=== PATIENT | male | born 1980 | race Caucasian/White ===

== ENCOUNTER 2016-12-07 04:52 | Inpatient (IN) | payer OTHER ==
[~2016-12-07] VITALS: Ht 167.6 cm; Wt 175.5 kg
--- NOTE | ~2016-12-07 | HP ---
Unit #: [id number] #: [id number] Patient: PERFECTO CHILD [id number] [address] [address] [id number] I MR#: [id number] NAME: PERFECTO CHILD ROOM: CICCU3 Age: 36 Sex: M Admission Date: 12/07/2016 : 1980 Attending Physician: Desmond Dumont M.D. Primary Care Physician: No Primary Care Physician HISTORY AND PHYSICAL HISTORY OF PRESENT ILLNESS The patient is a 36-year-old man with a history significant for nonischemic cardiomyopathy, who presents to the hospital with symptoms of acute severe shortness of breath, sudden onset, associated with symptoms of cough. PAST MEDICAL HISTORY Past medical history for community-acquired pneumonia approximately three years ago, nonischemic cardiomyopathy with ejection fraction of 10% to 15%, hypertension, hyperlipidemia, morbid obesity, asthma. ALLERGIES No known drug allergies. HOME MEDICATIONS 1. Furosemide 40 mg p.o. b.i.d. 2. K-Dur 20 mEq p.o. daily. 3. Isosorbide mononitrate 10 mg p.o. b.i.d. 4. Aldactone 12.5 mg p.o. daily. 5. Lisinopril 20 mg p.o. daily. 6. Hydralazine 50 mg p.o. t.i.d. 7. Coreg 12.5 mg p.o. b.i.d. 8. Zyloprim 100 mg p.o. daily. 9. Aspirin 81 mg p.o. daily. 10. Indomethacin 50 mg p.o. t.i.d. SOCIAL HISTORY Currently a nonsmoker, does not drink alcohol. FAMILY HISTORY Positive for diabetes mellitus and congestive heart failure. REVIEW OF SYSTEMS History notable for shortness of breath, cough, chills and as per HPI. The rest of 12-point review of systems history negative. PHYSICAL EXAMINATION VITAL SIGNS: On examination initially temperature of 99.7, heart rate of 130 and respiratory rate of 50. Patient started on supplemental oxygen and subsequently his heart rate improved to 93. His respiratory rate improved to 29. Oxygen saturation 96% on 10 L Oxymizer. GENERAL: Morbidly obese, tachypneic. HEENT: Normocephalic and atraumatic. Oropharynx clear. Unit #: [id number] #: [id number] Patient: PERFECTO CHILD NECK: Supple. Trachea midline. CHEST: Bilateral air entry. Diminished breath sounds over right side. Scattered rhonchi. CARDIAC: Tachycardic, with regular rhythm. ABDOMEN: Soft, nontender and nondistended. EXTREMITIES: No cyanosis. Mild dependent edema. DIAGNOSTIC STUDIES IMAGING: Chest x-ray dense airspace infiltrate. ASSESSMENT AND PLAN 1. Acute respiratory failure with hypoxia requiring Oxymizer at 10 L per minute to maintain O2 sats above 90% secondary to pneumonia. Plan is to order and continue supplemental oxygen, order nebulized bronchodilators, order empiric IV antibiotics, order pulmonary consultation. 2. Acute exacerbation of congestive heart failure, systolic failure, ejection fraction 10% to 15%. Plan is to order IV diuresis, continue CARMINA inhibitor, order cardiology consultation. Dictated by Gilberto Olea TD: 12/07/2016 19:20 JOB #: [id number] HISTORY AND PHYSICAL Page 1 of 1 X X HISTORY AND PHYSICAL
--- NOTE | ~2016-12-07 | EKG ---
PATIENT: PERFECTO CHILD UNIT #: [id number] Ventricular Rate: 114 BPM Atrial Rate: 114 BPM P-R Interval: 140 ms QRS Duration: 170 ms Q-T Interval: 350 ms QTC Calculation(Bezet): 482 ms P [place]: 31 degrees Calculated R [place]: -89 degrees Calculated T [place]: 77 degrees Diagnosis Line: Sinus tachycardia Diagnosis Line: Possible Left atrial enlargement Diagnosis Line: Left axis deviation Diagnosis Line: Left bundle branch block Diagnosis Line: Abnormal ECG Diagnosis Line: No previous ECGs available Diagnosis Line: Confirmed by DARY MARIA MD ([id number]) on 12/07/2016 Diagnosis Line: 5:17:33 PM INTERPRETING MD: CROW BROWN
--- NOTE | ~2016-12-07 | BMI ---
[facility] Nutrition Therapy DATE: 12/07/16 Patient: PERFECTO CHILD Physician: DEB Address: [address] [facility] Room/Bed: [address], Zip: [place] [address] Admit Date: 12/07/16 Date of : [birth year] Height: 5 6 Weight: 416 189.03 HIGH BMI NOTE: DX: 36 y/o male, diagnosis unknown at this time (No H&P available) ANTHROPOMETRICS: Ht: 66", Wt: 416 lbs, BMI: 67 (stage III obese) DIET: NPO INTERVENTION: Restricted diet, meds/fluids per MD RECOMMENDATIONS: Once appropriate advance oral diet as tolerated to healthy heart to promote a gradual weight loss towards a healthy BMI range. Add consistent carb restriction if the patient has a hx of DM. Respectfully, Viviane Dang RD, LD Food and Nutritional Services [facility] cc: client file
--- NOTE | ~2016-12-07 | EKG ---
PATIENT: PERFECTO CHILD UNIT #: [id number] Ventricular Rate: 103 BPM Atrial Rate: 103 BPM P-R Interval: 162 ms QRS Duration: 172 ms Q-T Interval: 400 ms QTC Calculation(Bezet): 524 ms P [place]: 49 degrees Calculated R [place]: -129 degrees Calculated T [place]: 41 degrees Diagnosis Line: Sinus tachycardia Diagnosis Line: Possible Left atrial enlargement Diagnosis Line: Right superior axis deviation Diagnosis Line: Non-specific intra-ventricular conduction block Diagnosis Line: Abnormal ECG Diagnosis Line: When compared with ECG of 07-DEC-2016 09:34, Diagnosis Line: No significant change was found Diagnosis Line: Confirmed by WAYNE FARIAS MD ([id number]) on Diagnosis Line: 12/10/2016 4:48:02 PM INTERPRETING MD: DENZEL
--- NOTE | ~2016-12-07 | EKG ---
PATIENT: PERFECTO CHILD UNIT #: [id number] Ventricular Rate: 72 BPM Atrial Rate: 72 BPM P-R Interval: 174 ms QRS Duration: 182 ms Q-T Interval: 464 ms QTC Calculation(Bezet): 508 ms P [place]: 14 degrees Calculated T [place]: 71 degrees Diagnosis Line: Normal sinus rhythm Diagnosis Line: Non-specific intra-ventricular conduction delay Diagnosis Line: LBBB type Diagnosis Line: Abnormal ECG Diagnosis Line: When compared with ECG of 08-DEC-2016 06:23, Diagnosis Line: QRS axis Shifted right Diagnosis Line: Confirmed by WAYNE FARIAS MD ([id number]) on Diagnosis Line: 12/14/2016 4:34:34 PM INTERPRETING MD: DENZEL
--- NOTE | ~2016-12-07 | EKG ---
PATIENT: PERFECTO CHILD UNIT #: [id number] Ventricular Rate: 127 BPM Atrial Rate: 127 BPM P-R Interval: 136 ms QRS Duration: 160 ms Q-T Interval: 426 ms QTC Calculation(Bezet): 619 ms P [place]: -27 degrees Calculated R [place]: -98 degrees Calculated T [place]: 60 degrees Diagnosis Line: Sinus tachycardia Diagnosis Line: Right superior axis deviation Diagnosis Line: Non-specific intra-ventricular conduction block Diagnosis Line: Abnormal ECG Diagnosis Line: When compared with ECG of 07-DEC-2016 04:58, Diagnosis Line: (unconfirmed) Diagnosis Line: qrs axis has shifted right and QRS widening is new Diagnosis Line: Confirmed by DARY MARIA MD ([id number]) on 12/07/2016 Diagnosis Line: 5:14:55 PM INTERPRETING MD: CROW BROWN
--- NOTE | ~2016-12-07 | CR72 ---
[facility] A Service of [facility] RADIOLOGY TEXT RESULTS PATIENT: PERFECTO CHILD LOCATION: [address] : [birth year] UNIT #: [id number] AGE: [address]: LIBERTY BURRIS V SEX: M ORDER DR: [id number] [facility] [address] [facility] [place], [place] [address] [id number] I MR#: [id number] #: [id number] NAME: PERFECTO CHILD : 1980 SEX: M STUDY DATE/TIME: 12/09/2016 4:14 UNIT: [facility] ROOM: [facility] STUDY DESCRIPTION: CR Chest Single View Portable Attending Physician: Liberty Burris M.D. Ordering Physician: Sushant Panda M.D. Primary Care Physician: Primary Care Physician No MEDICAL IMAGING REPORT This report is preliminary unless electronic signature is present EXAM Portable chest HISTORY Shortness of air and leg edema and cough for 2 days. FINDINGS Compared to 12/07/2016 there has been interval clearing of the extensive infiltrate in the right lung. Stable cardiac enlargement. Underpenetration of the left base with questionable consolidation or atelectasis in the retrocardiac left lower lobe. Evaluation is also limited by relatively low lung volumes. No additional focal infiltrates are identified. Dictated by... Soham Jc M.D. THIS IS AN ELECTRONICALLY VERIFIED REPORT Soham Jc M.D. at 12/10/2016 4:51 AM CJ/liv TD: 12/10/2016 00:23 JOB #: [id number] MEDICAL IMAGING REPORT Page 1 of 1 COPY
--- NOTE | ~2016-12-07 | CR72 ---
[facility] A Service of [facility] / [facility] RADIOLOGY TEXT RESULTS PATIENT: PERFECTO CHILD LOCATION: [facility] 547-01 : [birth year] UNIT #: [id number] AGE: [address]: Vasquez Buckley MD SEX: M ORDER DR: [id number] [facility] [address] [place], [place] [address] [id number] I MR#: [id number] Acc #: [id number] NAME: PERFECTO CHILD : 1980 SEX: M STUDY DATE/TIME: 12/07/2016 5:15 UNIT: [facility] ROOM: [facility] STUDY DESCRIPTION: CR Chest Single View Portable Attending Physician: Desmond Dumont M.D. Ordering Physician: Francisco Javier Curtis D.O. Primary Care Physician: No Primary Care Physician MEDICAL IMAGING REPORT This report is preliminary unless electronic signature is present EXAM Chest x-ray, 12/07/2016. HISTORY 36-year-old male in the ED complaining of a 2-week history of shortness of air, cough and wheezing, worsening today. TECHNIQUE AP portable chest x-ray. FINDINGS The exam shows dense airspace infiltrate throughout the majority of the right lung. Left lung is mostly clear, with the exception of minimal infiltrate or atelectasis in the left base. Marked cardiomegaly is stable. Pulmonary vascularity is within normal limits. No visible pleural effusion. Lung volumes are low, largely related to patient body habitus. IMPRESSION 1. Dense airspace infiltrate throughout the right lung. Infectious pneumonitis is suspected, correlate clinically. 2. Stable marked cardiomegaly. Dictated by... Sushant Johnson M.D. THIS IS AN ELECTRONICALLY VERIFIED REPORT Sushant Johnson M.D. at 12/10/2016 11:07 PM RGW/tmw TD: 12/07/2016 14:15 [facility] A Service of [facility] RADIOLOGY TEXT RESULTS PATIENT: PERFECTO CHILD LOCATION: [place] [address]-01 : [birth year] UNIT #: [id number] AGE: [address]: Vasquez Buckley MD SEX: M ORDER DR: JOB #: [id number] MEDICAL IMAGING REPORT Page 1 of 1 COPY
--- NOTE | ~2016-12-07 | CR63 ---
[facility] A Service of [facility] & [facility] RADIOLOGY TEXT RESULTS PATIENT: PERFECTO CHILD LOCATION: [place] [address]- : [birth year] UNIT #: [id number] AGE: [address]: Vasquez Buckley MD SEX: M ORDER DR: [id number] [facility] [address] [place], [place] [address] [id number] I MR#: [id number] Acc #: [id number] NAME: PERFECTO CHILD : 1980 SEX: M STUDY DATE/TIME: 12/10/2016 7:26 UNIT: [facility] ROOM: [facility] STUDY DESCRIPTION: CR Chest 2 View Attending Physician: Vasquez Buckley M.D. Ordering Physician: Desmond Dumont M.D. Primary Care Physician: No Primary Care Physician MEDICAL IMAGING REPORT This report is preliminary unless electronic signature is present EXAM Chest PA and lateral 12/10/2016. HISTORY Shortness of breath and cough beginning 12/07/2016, benign essential hypertension, congestive heart failure, asthma, diabetes. Smoking history. FINDINGS The heart is enlarged but stable compared with 12/09/2016. There is poor inspiratory result with bibasilar atelectasis. The lungs are otherwise clear. There are no pleural effusions. IMPRESSION Stable cardiomegaly compared with 12/09/2016. No active pulmonary disease. Dictated by... Edmundo Sorensen M.D. THIS IS AN ELECTRONICALLY VERIFIED REPORT Edmundo Sorensen M.D. at 12/11/2016 7:16 AM KRT/gz TD: 12/10/2016 13:30 JOB #: [id number] MEDICAL IMAGING REPORT Page 1 of 1 COPY
--- NOTE | ~2016-12-07 | EKG ---
PATIENT: PERFECTO CHILD UNIT #: [id number] Ventricular Rate: 101 BPM Atrial Rate: 101 BPM P-R Interval: 172 ms QRS Duration: 172 ms Q-T Interval: 422 ms QTC Calculation(Bezet): 547 ms P [place]: 43 degrees Calculated R [place]: -60 degrees Calculated T [place]: 82 degrees Diagnosis Line: Sinus tachycardia Diagnosis Line: Possible Left atrial enlargement Diagnosis Line: Left axis deviation Diagnosis Line: Left bundle branch block Diagnosis Line: Abnormal ECG Diagnosis Line: When compared with ECG of 07-DEC-2016 06:31, Diagnosis Line: (unconfirmed) Diagnosis Line: No significant change was found Diagnosis Line: Confirmed by DARY MARIA MD ([id number]) on 12/07/2016 Diagnosis Line: 5:26:12 PM INTERPRETING MD: CROW BROWN
--- NOTE | ~2016-12-07 | US84 ---
[id number] [facility] [address] [facility] [place], [place] [address] [id number] I MR#: [id number] Acc #: [id number] NAME: PERFECTO MARSH : 1980 SEX: M STUDY DATE/TIME: 12/08/2016 9:15 UNIT: C5B ROOM: 547 STUDY DESCRIPTION: US LE Veins Complete Mathew Stdy Attending Physician: Vasquez Buckley M.D. Ordering Physician: Juanpablo Hernández M.D. Primary Care Physician: Primary Care Physician No MEDICAL IMAGING REPORT This report is preliminary unless electronic signature is present EXAM Bilateral lower extremity duplex venous ultrasound. INDICATIONS Bilateral lower extremity swelling for 2 weeks and shortness of breath. TECHNIQUE Ling-scale, color Doppler, and spectral Doppler waveform imaging of the deep venous structures of both lower extremities was performed. COMPARISON No comparisons are available. FINDINGS All of the evaluated deep venous structures are patent. There is no evidence for DVT. IMPRESSION There is no evidence for DVT. Dictated by... Jose Marsh M.D. THIS IS AN ELECTRONICALLY VERIFIED REPORT Jose Marsh M.D. at 12/11/2016 7:02 AM RADHA/betsey TD: 12/09/2016 11:36 JOB #: [id number] MEDICAL IMAGING REPORT Page 1 of 1 COPY
--- NOTE | ~2016-12-07 | DS ---
Unit #: [id number] #: [id number] Patient: PERFECTO CHILD [id number] [address] [address] [id number] I MR#: [id number] NAME: PERFECTO CHILD ROOM: 547 Age: 36 Sex: M Admission Date: 12/07/2016 : 1980 Discharge Date: 12/13/2016 Attending Physician: Vasquez Buckley M.D. Primary Care Physician: No Primary Care Physician DISCHARGE SUMMARY DISCHARGE DIAGNOSES 1. Acute on chronic systolic heart failure. 2. Acute hypoxic respiratory failure. 3. Hypertension. 4. Morbid obesity. 5. Probable obstructive sleep apnea. HOSPITAL COURSE The patient is a 36-year-old male with morbid obesity and systolic heart failure, ejection fraction of 10% to 15%, who presented to [facility] secondary to worsening shortness of breath. Patient was initially placed on 100% nonrebreather and admitted to the ICU. He was started on an 1800 mL daily fluid restriction. He was seen by cardiology and started on dobutamine and IV Lasix as well. Given the patient's body habitus, he was started on BiPAP at night for probable sleep apnea. Patient's medications were altered to ensure (1) medical management. The patient's diuresis has gone well. At this time, he is in net 6 liters down. His breathing is much better and he is no longer requiring oxygen. Patient was set up for a LifeVest, which was delivered. Unfortunately, secondary to the patient's size, there was no available vest that would fit. As a result, the patient was taken for heart cath, which revealed normal coronary arteries. At this time, the patient's respiratory status is near baseline. He is off oxygen. Secondary to this, he is being discharged home after optimization of his medications. DISCHARGE MEDICATIONS 1. Coreg 37.5 mg p.o. b.i.d. 2. Lasix 60 mg b.i.d. 3. Zestril 10 mg b.i.d. 4. Allopurinol 100 mg daily. 5. Aspirin 81 mg daily. 6. Spironolactone 25 mg daily. 7. Nitroglycerin 0.4 mg sublingual q.5 minutes x3 doses max p.r.n. chest pain. FOLLOWUP Unit #: [id number] #: [id number] Patient: PERFECTO CHILD Patient is to follow up with Dr. Boyle in two weeks. He should follow up with Dr. Edin Hernández for sleep study. DISCHARGE DIET Patient should stick to a strict heart healthy, low sodium diet with 1800 mL daily fluid restriction. Dictated by... Vasquez Buckley M.D. ISIAH/kyle TD: 12/17/2016 09:04 JOB #: [id number] DISCHARGE SUMMARY Page 1 of 1 X Vasquez Buckley MD X DISCHARGE SUMMARY
--- NOTE | ~2016-12-07 | CO ---
Unit #: [id number] #: [id number] Patient: PERFECTO CHILD [id number] [address] [address] [id number] I MR#: [id number] NAME: PERFECTO CHILD ROOM: 547 Age: 36 Sex: M Admission Date: 12/07/2016 : 1980 Attending Physician: Vasquez Buckley M.D. Primary Care Physician: Primary Care Physician No Consultation Date: 12/12/2016 CONSULTATION REPORT REASON FOR CONSULTATION Depression and anxiety. HISTORY OF PRESENT ILLNESS Mr. Ramirez is a 36-year-old male, seen in room 547 bed 1 on 12/12/2016 at [facility]. The patient reported feeling anxious and nervous about upcoming cath tomorrow. The patient denied any thoughts of harming self or others. Denied any psychotic symptom except for anxiety. The patient was admitted with cardiac problem, history of nonischemic cardiomyopathy, symptoms of acute severe shortness of breath leading to severe anxiety. The patient's vital signs; temperature 99.7, blood pressure 130/50, oxygen saturation 96%, respiration rate is 29. PAST PSYCHIATRIC HISTORY Unremarkable for any history of any psychiatric illness, depression, anxiety, or any substance abuse. MEDICAL HISTORY History of community acquired pneumonia, nonischemic cardiomyopathy with ejection fraction of 10% to 15%, hypertension, hyperlipidemia, morbid obesity, asthma. ALLERGIES No known drug allergies. MEDICATIONS Furosemide, K-Dur, isosorbide mononitrate, Aldactone, lisinopril, hydralazine, Coreg, Zyloprim, aspirin, indomethacin. FAMILY HISTORY AND SOCIAL HISTORY The patient reports that he has a good support system. Denied any use of any drugs or alcohol. No history of abuse. MENTAL STATUS EXAMINATION Vital signs; please see above. General appearance; the patient dressed casually, moderately obese. Attention span and concentration, fair. Speech; regular rate and coherent. Oriented in time, place, and person. Mood and affect; sad, dysphoric, anxious. Thought process, coherent. Thought content, the patient denied any thoughts of harming self or others or any hallucination. Recent and remote memory, fair. Language, intact. Fund of knowledge, fair. Insight and judgment, fair to slightly impaired. DIAGNOSES Psychiatric: Anxiety disorder, not otherwise specified, F40.01; mood Unit #: [id number] #: [id number] Patient: PERFECTO CHILD disorder, not otherwise specified, F32.9. Secondary diagnosis: Deferred. Medical diagnosis: Please refer to H and P. Stressors: Psychosocial stressors. ASSESSMENT AND PLAN 1. Supportive psychotherapy and psychoeducation provided to the patient. 2. Educated about benefits and side effects of medication and course and prognosis of illness. 3. Advised no medication at this time. If needed, consider medication at a later date. We will continue to follow. Please feel free to call if any question telephone #[phone]. Dictated by... Gilberto Ayala/aileen TD: 12/13/2016 19:04 JOB #: [id number] CONSULTATION REPORT Page 1 of 1 X Win Arreguin MD X CONSULTATION REPORT
--- NOTE | ~2016-12-07 | CO ---
Unit #: [id number] #: [id number] Patient: PERFECTO CHILD [id number] [facility] [address] [facility]. [place], [place] [address] [id number] I MR#: [id number] NAME: PERFECTO CHILD ROOM: CICCU3 Age: 36 Sex: M Admission Date: 12/07/2016 : 1980 Attending Physician: Desmond Dumont M.D. Primary Care Physician: No Primary Care Physician Consultation Date: 12/07/2016 CONSULTATION REPORT REASON FOR CONSULT Congestive heart failure. HISTORY OF PRESENT ILLNESS This is a 36-year-old white male previously known to our group with a past medical history of chronic systolic heart failure, hypertension, hyperlipidemia, diabetes mellitus, and morbid obesity. The patient was seen at [facility] April 2013 for congestive heart failure. A 2D echocardiogram was completed and revealed an ejection fraction of 10% to 15% with severe global hypokinesis. He was recommended to follow up as an outpatient but did not come to the office. He has not followed with cardiology since that time but does have an upcoming appointment. He has been receiving his medications from his primary care provider; however, he states there are times that he runs out of his medications or does not take them as instructed. He does not follow fluid restriction. He reportedly underwent a cardiac catheterization that revealed no significant stenosis. Details of the procedure are unknown. He does not have an AICD. He presented to the emergency department with complaints of shortness of breath. He states that he has been short of breath for the last couple of weeks but it recently became worse. It got to the point where the shortness of breath was with rest and at night. He could not lay flat. He has had a possible low-grade fever. He admits to a mildly productive cough. There are no reports of dizziness or syncope. He admits to some palpitations. There were no reports of chest pain, but he does report PND, orthopnea, and lower extremity edema. In the emergency department, his temperature was 99.7. Pulse 130, respirations 50, blood pressure 116/95, and O2 saturation 96% on 100% nonrebreather. Initial O2 saturation was 80% on room air. Chest x-ray revealed severe cardiomegaly with vascular congestion. There is also concern for underlying pneumonia. The patient was given IV antibiotics and initially placed on BiPAP. He was then switched to 100% nonrebreather. He was admitted to the intensive care unit and cardiology was consulted. PAST MEDICAL HISTORY 1. Previous admission to [facility] April 2013 for systolic congestive heart failure, pneumonia, and asthma. 2. A 2D echocardiogram, April 28, 2013, was a technically difficult study. Left ventricular ejection fraction 10% to 15%. Severe global hypokinesis. LV is severely dilated. RV moderately dilated. LA mildly dilated. No pericardial effusion. Limited view of valves. Unit #: [id number] #: [id number] Patient: PERFECTO CHILD 3. Chronic systolic congestive heart failure. 4. Reported nonischemic cardiomyopathy. 5. Previous cardiac catheterization reportedly, per patient, with no significant blockage. Details unavailable. 6. Morbid obesity with a BMI of 69. 7. Hypertension. 8. Hyperlipidemia. 9. Diabetes mellitus type 2. 10. Asthma. 11. Probable obstructive sleep apnea. 12. History of nonsustained ventricular tachycardia. PAST SURGICAL HISTORY Reported cardiac catheterization, details unavailable. HOME MEDICATIONS 1. Furosemide 40 mg p.o. b.i.d. 2. Potassium chloride 20 mEq p.o. daily. 3. Isosorbide mononitrate 10 mg p.o. b.i.d. 4. Spironolactone 12.5 mg p.o. daily. 5. Lisinopril 20 mg p.o. daily. 6. Hydralazine 50 mg p.o. t.i.d. 7. Carvedilol 12.5 mg p.o. b.i.d. 8. Allopurinol 100 mg p.o. daily. 9. Aspirin 81 mg p.o. daily. 10. Indomethacin 50 mg p.o. three times daily. ALLERGIES No known drug allergies. 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 He is fairly sedentary and says that he cannot walk a city block without getting fatigued and short of breath. He is a reformed smoker and quit over five years ago. There are no reports of alcohol or illicit drug use. FAMILY HISTORY Significant for hypertension. REVIEW OF SYSTEMS A 10-point review of systems negative except for details noted above in HPI. PHYSICAL EXAMINATION VITAL SIGNS: Temperature 99.7, pulse 98, blood pressure 121/81. CONSTITUTIONAL: This is a 36-year-old morbidly obese white male, mildly distressed with tachypnea. SKIN: Warm and dry, pale. NECK: Supple. No jugular vein distention. No hepatojugular reflux. Normal carotid upstrokes. No carotid bruits auscultated. HEART: S1, S2. Regular rate and rhythm but tachycardic. No murmurs, rubs, or gallops. Distant heart sounds. LUNGS: Bilateral breath sounds have decreased air entry in the bases. Respirations slightly tachypneic and labored. ABDOMEN: Soft, nontender, nondistended. Positive bowel sounds auscultated x4 quadrants. No ascites noted. EXTREMITIES: Bilateral lower extremities have nonpitting edema. DP and PT pulses 2+. Capillary refill less than 3 seconds. Unit #: [id number] #: [id number] Patient: PERFECTO CHILD DIAGNOSTIC STUDIES LABORATORY: White blood cell count 17.8, hemoglobin 14.2, hematocrit 44, platelets 222,000. Sodium 143, potassium 4, chloride 107, CO2 of 25, BUN 17, creatinine 1.2, glucose 115. BNP 682. Lactic acid 1.1. Troponin 0.05 and 0.05 per point of care. INR 1.1. IMAGING: Chest x-ray reveals dense airspace infiltrate throughout the right lung. Infectious pneumonitis suspected. Stable marked cardiomegaly. CARDIOVASCULAR: Electrocardiogram reveals sinus tachycardia with a left bundle branch block, new from previous study in 2014. IMPRESSION 1. Acute hypoxic respiratory failure. 2. Acute on chronic systolic congestive heart failure. 3. Probable pneumonia. 4. Severe cardiomyopathy with an ejection fraction of 10% to 15% per 2D echocardiogram in April 2013. 5. A reported cardiac catheterization, per patient, but no details available. 6. Morbid obesity. 7. Hypertension. 8. Hyperlipidemia. 9. Diabetes mellitus type 2. PLAN 1. The patient presented to the hospital with complaints of shortness of breath. He was admitted for acute hypoxic respiratory failure and was transferred to the intensive care unit. 2. Cardiology was consulted for congestive heart failure. 3. The patient will be started on a dobutamine drip at 2.5 mcg/kg/min. He will be diuresed with IV Lasix. 4. He will be continued on an CARMINA inhibitor, nitrate, and spironolactone. His beta divine will be held while dobutamine infuses. 5. There are no reports of chest pain. Initial cardiac enzymes are negative. Will trend cardiac enzymes and EKG. 6. The patient states that he had a cardiac catheterization that was reportedly normal with no blockages; however, the details of this are unknown. Will need to request further information from the patient's family. 7. A repeat 2D echocardiogram has been ordered to re-assess left ventricular function and valves. 8. Cardiac rehab has been consulted. 9. The patient has been recommended to lose weight by means of decreased caloric intake and exercise. 10. He would benefit from Heart Failure Clinic referral and elective AICD. Dictated by... Sona Graham APRN for Gilberto Richter/anabell Unit #: [id number] #: [id number] Patient: PERFECTO CHILD TD: 12/09/2016 08:19 JOB #: [id number] CONSULTATION REPORT Page 1 of 1 X X CONSULTATION REPORT
--- NOTE | ~2016-12-07 | CO ---
Unit #: [id number] #: [id number] Patient: PERFECTO MARSH [id number] [address] [address] [id number] I MR#: [id number] NAME: PERFECTO MARSH ROOM: CICCU3 Age: 36 Sex: M Admission Date: 12/07/2016 : 1980 Attending Physician: Desmond Dumont M.D. Primary Care Physician: No Primary Care Physician CONSULTATION REPORT HISTORY OF PRESENT ILLNESS Mr. Marsh is a 36-year-old white male, who I have seen in the past. He presented to the emergency room with a two-week history of increasing shortness of breath. He had increased lower extremity edema. Usually with these symptoms, he would double his dose of Lasix and his symptoms would improve but they did not and he presented to the emergency room. He had some cough, possibly productive. No hemoptysis. No chest pain. No definite fevers or chills. He did feel somewhat warm last night, he said. On presentation to the emergency room, a chest x-ray was done which revealed diffuse right-sided infiltrates with cardiomegaly, small lung volumes. Arterial blood gases revealed a pH of 7.42, pCO2 of 40, pO2 of 98 on 100% nonrebreather. Previous room air blood gases revealed a pH of 7.40, pCO2 of 44, pO2 of 59 in August 2010. BMP was fairly unremarkable. BNP was 682. Cardiac enzymes were negative. Coagulation studies were normal. White count was 17,800, hematocrit 44, platelet count was normal and there was no eosinophilia. PAST MEDICAL HISTORY 1. Morbid obesity. 2. History of community-acquired pneumonia and decompensated congestive heart failure in the past. 3. Nonischemic cardiomyopathy. 4. Ejection fraction 10% to 15%. 5. Hypertension. 6. Hyperlipidemia. 7. Adult-onset diabetes mellitus. 8. Morbid obesity. 9. Some history of asthma, only on albuterol. ALLERGIES No known allergies. HOME MEDICATIONS 1. Furosemide. 2. Potassium. 3. Isosorbide mononitrate. 4. Aldactone. 5. Lisinopril. 6. Hydralazine. 7. Coreg. 8. Zyloprim. 9. Aspirin. 10. Indomethacin. Unit #: [id number] #: [id number] Patient: PERFECTO MARSH SOCIAL HISTORY He lives with , stopped smoking about seven years ago. No alcohol or illicit drugs. 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 FAMILY HISTORY Diabetes, sleep apnea, brain cancer, CHF. REVIEW OF SYSTEMS CONSTITUTIONAL: No definite fevers or chills. HEENT: No rhinorrhea, nasal congestion. PULMONARY: As noted. CARDIAC: No chest pain or palpitations. GASTROINTESTINAL: Does have severe nonischemic cardiomyopathy. No nausea or vomiting. No melena or hematochezia. GENITOURINARY: No dysuria or hematuria. EXTREMITIES: He has had increased lower extremity edema. MUSCULOSKELETAL: Does have some gout in, I believe it is his right foot. NEUROLOGIC: No unilateral weakness or numbness. SKIN: No rash. SLEEP: Does have difficulty initiating and maintaining sleep, loud snoring, unsure of any apneic episodes. States he probably does have sleep apnea. PHYSICAL EXAMINATION GENERAL: A morbidly obese white male in no distress, wearing 100% nonrebreather, able to speak in complete sentences, not using accessory muscles. VITAL SIGNS: Blood pressure is 119/75, pulse 106, respiratory rate 29, afebrile. HEENT: Normocephalic and atraumatic. Pupils equal, round, and reactive. Sclerae nonicteric. Nasal passages patent. Posterior pharynx crowded. Mallampati IV. NECK: Thick, supple. Trachea midline. No cervical or supraclavicular lymphadenopathy. LUNGS: Reveal diminished breath sounds bilaterally. Crackles in the bases. CARDIAC: Regular rate and rhythm. Could not appreciate murmur, rub, or gallop. ABDOMEN: Nontender. Bowel sounds present. No hepatosplenomegaly. EXTREMITIES: With trace to 1+ edema bilaterally. No cords palpated. NEUROLOGIC: Awake, alert, oriented x3. Cranial nerves intact. Muscle strength symmetric bilaterally. Affect calm. SKIN: Warm and dry. Multiple tattoos. DIAGNOSTIC STUDIES LABORATORY: Laboratory studies are as noted. IMAGING: Chest x-ray is noted and reviewed. IMPRESSION 1. Acute hypoxemic respiratory failure. 2. Right-sided pulmonary infiltrate, pneumonia versus atypical congestive heart failure versus a combination of both. 3. Chronic systolic congestive heart failure, ejection fraction 10% to 15%. 4. Hypertension. 5. Hyperlipidemia. Unit #: [id number] #: [id number] Patient: PERFECTO MARSH 6. Diabetes. 7. Probable obstructive sleep apnea. 8. Morbid obesity. PLAN 1. Will treat for community-acquired pneumonia with Rocephin and Zithromax. 2. Will check urinary antigen for legionella and strep. 3. Will check procalcitonin level. 4. Rule out myocardial infarction with serial enzymes. 5. Will place on empiric BiPAP with sleep for presumed sleep apnea. 6. Will also check lower extremity venous Doppler studies to rule out possibility of venous thromboembolism. 7. Will follow with you. Dictated by... Juanpablo Hernández M.D. SAHIL/anabell TD: 12/08/2016 14:11 JOB #: [id number] CONSULTATION REPORT Page 1 of 1 X Juanpablo Hernández MD X CONSULTATION REPORT
[~2016-12-07 04:52] MED LIST: ACETAMINOPHEN500 M5 PO; ALBUTEROL17 GM INH; ALDACTONE25 MG PO; AMOXICILLIN500 M1 PO; ASPIRIN81 M2 PO; AUGMENTIN PO; BACTRIM DS TABL1 TA1 PO; BAYER CHEWABLE81 MG PO; CARVEDILOL12.5 MG PO; CARVEDILOL6.25 MG PO; CLEOCIN PO; COREG6.25 MG PO; DIABETA5 M1 PO; FLONASE 0.05% N16 G1; GLUCOPHAGE850 MG PO; GLYBURIDE2.5 MG PO; HCTZ PO; HUGO FOLDING WA1 PKT MC; HYDRALAZINE HCL25 MG PO; HYDRALAZINE HCL50 MG PO; HYDROCODONE-APA1 T61 PO; IBUPROFEN800 MG PO; INDOMETHACIN25 MG PO; INDOMETHACIN50 MG PO; ISOSORBIDE DINI10 MG PO; ISOSORBIDE MONO20 M1 PO; LASIX PO; LASIX20 MG PO; LEVAQUIN PO; LEVAQUIN750 MG PO; LISINOPRIL10 MG PO; LISINOPRIL2.5 MG PO; LISINOPRIL20 MG PO; MICRONASE5 M1 PO; NORCO 5/325 TAB1 TAB PO; OMNICEF300 M1 PO; PERCOCET 10/3251 TAB PO; PREDNISONE10 MG PO; SYMBICORT INH; TRAMADOL HCL50 M2 PO; VITAMIN D2400 UNIT PO; VITAMIN D31000 UNI1 PO; ZITHROMAX500 MG PO; ZYRTEC10 M2 PO
[2016-12-07] MEDS ORDERED: K-DUR20 ME1 PO (05:01)
[2016-12-07] MEDS ORDERED: FUROSEMIDE40 MG PO (05:01)
[2016-12-07] MEDS ORDERED: ALDACTONE25 MG PO (05:02)
[2016-12-07] MEDS ORDERED: ISOSORBIDE MONO10 MG PO (05:02)
[2016-12-07] MEDS ORDERED: LISINOPRIL20 MG PO (05:03)
[2016-12-07] MEDS ORDERED: HYDRALAZINE HCL50 MG PO (05:03)
[2016-12-07] MEDS ORDERED: ASPIRIN PO (05:04)
[2016-12-07] MEDS ORDERED: ZYLOPRIM100 MG PO (05:04)
[2016-12-07] MEDS ORDERED: CARVEDILOL12.5 MG PO (05:04)
[2016-12-07] MEDS ORDERED: INDOMETHACIN50 MG PO (05:04)
[2016-12-07 05:15] LABS: ARTERIAL BLD GAS O2 SATURATION 97.9 % (90.0-100.0); ARTERIAL BLOOD GAS HCO3 26.2 mmol/L; ARTERIAL BLOOD GAS PCO2 40.1 mmHg (35.0-45.0); ARTERIAL BLOOD GAS PO2 98.7 mmHg (80.0-100); ARTERIAL BLOOD GAS pH 7.423 (7.350-7.450)
[2016-12-07 05:16] LABS: ARTERIAL BLOOD GAS ALLEN TEST NORMAL; ARTERIAL BLOOD GAS ART SITE LEFT RADIAL; ARTERIAL BLOOD GAS CARBOXY HB 1.2 %sat (0.0-9.0); ARTERIAL BLOOD GAS DELIVERY NON REBREATHER MASK; ARTERIAL BLOOD GAS MET HB 0.8 %sat (0.0-2.0); ARTERIAL DRAW? YES
[2016-12-07 05:28] LABS: BASOPHIL# 0.1 X10e3 (0-0.3); BASOPHIL% 0.7 % (0-2.5); EOSINOPHIL# 0.1 X10e3 (0-0.7); EOSINOPHIL% 0.6 % (0.0-7.0); HEMOGLOBIN 14.2 gm/dL (13.0-16.0); LYMPHOCYTE# 1.7 X10e3 (1.0-3.5); LYMPHOCYTE% 9.6 % (17.0-45.0); MEAN CELL VOLUME 85.1 FL (83-96); MEAN CORPUSCULAR HEMOGLOBIN 27.5 PG (28-34); MEAN CORPUSCULAR HGB CONC 32.3 g/dL (30-36); MEAN PLATELET VOLUME 10.2 FL (6.5-11.5); MONOCYTE# 0.9 X10e3 (0-1.0); MONOCYTE% 4.8 % (3.0-12.0); NEUTROPHIL% 84.3 % (40-75); PLATELET COUNT 222 X10e3 (140-420); RED BLOOD COUNT 5.17 X10e (3.90-5.60); RED CELL DISTRIBUTION WIDTH 14.7 % (11.0-15.5); WHITE BLOOD COUNT 17.8 X10e3 (4.0-10.5)
[2016-12-07 05:29] LABS: DIFF IND YES
[2016-12-07 05:30] LABS: POC - CKMB 2.4 ng/mL (0.0-7.9); POC - TROPONIN <0.05 ng/mL (<=0.05)
[2016-12-07 05:35] LABS: INR 1.1; PARTIAL THROMBOPLASTIN TIME 28.2 SECONDS (23.5-31.3); PROTHROMBIN TIME (PATIENT) 12.2 SECONDS (10.0-11.7)
[2016-12-07 05:56] LABS: BILIRUBIN, DIRECT 0.2 mg/dL (0.0-0.2); BILIRUBIN,TOTAL 1.2 mg/dL (0.2-2.0); BUN/CREATININE RATIO 14.16; CREATININE SERUM 1.2 mg/dL (0.6-1.4); GLOM FILT RATE Estimated 77.9 mL/min (>60); PROTEIN TOTAL SERUM 7.9 g/dL (6.0-8.3)
[2016-12-07 05:57] LABS: PLATELET ESTIMATE NORMAL (NORMAL)
[2016-12-07 07:30] LABS: POC - CKMB 1.8 ng/mL (0.0-7.9); POC - TROPONIN <0.05 ng/mL (<=0.05)
[2016-12-07 14:32] LABS: %MB 1.7 % (0.0-4.0); MB 2.5 ng/ml
[2016-12-07 14:48] LABS: CHOLESTEROL 184 mg/dL (0-200); HDL CHOLESTEROL 34 mg/dL (29-75); LDL CHOLESTEROL 133 mg/dL (-130); LDL/HDL RATIO 4 RATIO (0-4); TRIGLYCERIDES 83 mg/dL (10-160)
[2016-12-08 07:01] LABS: CALCIUM SERUM 8.8 mg/dL (8.4-10.2); GLOM FILT RATE Estimated 97.1 mL/min (>60); MAGNESIUM 2.1 mg/dL (1.6-3.0); POTASSIUM 3.9 mmol/L (3.5-5.1)
[2016-12-08 07:30] LABS: BASOPHIL% 0.1 % (0-2.5); HEMATOCRIT 39.6 % (38.0-50.0); HEMOGLOBIN 12.8 gm/dL (13.0-16.0); LYMPHOCYTE# 1.1 X10e3 (1.0-3.5); LYMPHOCYTE% 5.9 % (17.0-45.0); MEAN CELL VOLUME 85.4 FL (83-96); MEAN CORPUSCULAR HEMOGLOBIN 27.7 PG (28-34); MEAN CORPUSCULAR HGB CONC 32.4 g/dL (30-36); MEAN PLATELET VOLUME 10.2 FL (6.5-11.5); MONOCYTE# 0.8 X10e3 (0-1.0); MONOCYTE% 4.4 % (3.0-12.0); NEUTROPHIL# 16.7 X10e3 (1.5-7.1); NEUTROPHIL% 89.6 % (40-75); PLATELET COUNT 179 X10e3 (140-420); RED BLOOD COUNT 4.64 X10e (3.90-5.60); RED CELL DISTRIBUTION WIDTH 15.2 % (11.0-15.5); WHITE BLOOD COUNT 18.6 X10e3 (4.0-10.5)
[2016-12-08 07:44] LABS: DIFF IND NO
[2016-12-08 08:09] LABS: LEGIONELLA AG URINE NEG (NEG)
[2016-12-09 05:17] LABS: BASOPHIL# 0.1 X10e3 (0-0.3); BASOPHIL% 0.8 % (0-2.5); EOSINOPHIL# 0.1 X10e3 (0-0.7); EOSINOPHIL% 0.3 % (0.0-7.0); HEMATOCRIT 38.3 % (38.0-50.0); HEMOGLOBIN 12.3 gm/dL (13.0-16.0); LYMPHOCYTE% 17.1 % (17.0-45.0); MEAN CELL VOLUME 86.1 FL (83-96); MEAN CORPUSCULAR HEMOGLOBIN 27.6 PG (28-34); MEAN PLATELET VOLUME 9.7 FL (6.5-11.5); MONOCYTE# 1.3 X10e3 (0-1.0); MONOCYTE% 7.3 % (3.0-12.0); NEUTROPHIL# 13.1 X10e3 (1.5-7.1); NEUTROPHIL% 74.5 % (40-75); PLATELET COUNT 174 X10e3 (140-420); RED BLOOD COUNT 4.45 X10e (3.90-5.60); RED CELL DISTRIBUTION WIDTH 15.2 % (11.0-15.5); WHITE BLOOD COUNT 17.6 X10e3 (4.0-10.5)
[2016-12-09 05:34] LABS: CALCIUM SERUM 8.9 mg/dL (8.4-10.2); GLOM FILT RATE Estimated 97.1 mL/min (>60); MAGNESIUM 2.2 mg/dL (1.6-3.0); POTASSIUM 3.8 mmol/L (3.5-5.1)
[2016-12-09 05:37] LABS: DIFF IND NO
[2016-12-10 05:30] LABS: BASOPHIL# 0.1 X10e3 (0-0.3); EOSINOPHIL# 0.1 X10e3 (0-0.7); EOSINOPHIL% 0.5 % (0.0-7.0); HEMATOCRIT 38.7 % (38.0-50.0); HEMOGLOBIN 12.3 gm/dL (13.0-16.0); LYMPHOCYTE# 3.1 X10e3 (1.0-3.5); LYMPHOCYTE% 22.2 % (17.0-45.0); MEAN CELL VOLUME 86.3 FL (83-96); MEAN CORPUSCULAR HEMOGLOBIN 27.4 PG (28-34); MEAN CORPUSCULAR HGB CONC 31.8 g/dL (30-36); MEAN PLATELET VOLUME 9.9 FL (6.5-11.5); NEUTROPHIL# 9.7 X10e3 (1.5-7.1); NEUTROPHIL% 69.3 % (40-75); PLATELET COUNT 186 X10e3 (140-420); RED BLOOD COUNT 4.48 X10e (3.90-5.60); RED CELL DISTRIBUTION WIDTH 15.3 % (11.0-15.5)
[2016-12-10 05:37] LABS: DIFF IND NO
[2016-12-10 06:07] LABS: BUN/CREATININE RATIO 22.72; CALCIUM SERUM 9.2 mg/dL (8.4-10.2); CREATININE SERUM 1.1 mg/dL (0.6-1.4); GLOM FILT RATE Estimated 86.5 mL/min (>60); MAGNESIUM 2.1 mg/dL (1.6-3.0)
[2016-12-11 11:43] LABS: CREATININE SERUM 0.8 mg/dL (0.6-1.4); GLOM FILT RATE Estimated 115.8 mL/min (>60); MAGNESIUM 2.1 mg/dL (1.6-3.0); POTASSIUM 4.1 mmol/L (3.5-5.1)
[2016-12-13 06:20] LABS: HEMATOCRIT 40.1 % (38.0-50.0); MEAN CELL VOLUME 84.9 FL (83-96); MEAN CORPUSCULAR HEMOGLOBIN 27.6 PG (28-34); MEAN CORPUSCULAR HGB CONC 32.5 g/dL (30-36); MEAN PLATELET VOLUME 9.5 FL (6.5-11.5); RED BLOOD COUNT 4.72 X10e (3.90-5.60); RED CELL DISTRIBUTION WIDTH 14.4 % (11.0-15.5)
[2016-12-13 06:28] LABS: INR 1.1; PARTIAL THROMBOPLASTIN TIME 27.2 SECONDS (23.5-31.3)
[2016-12-13 06:45] LABS: CALCIUM SERUM 9.3 mg/dL (8.4-10.2); GLOM FILT RATE Estimated 97.1 mL/min (>60); POTASSIUM 4.2 mmol/L (3.5-5.1)
[2016-12-13] MEDS ORDERED: NITROGLYGERIN0.4 MG SL (15:05)
== END 2016-12-13 18:00 | disposition home or self-care (01) | DRG 291 ==
LOC: CED 04:52 → C5B 07:20 → CEDOF 07:20 → CICCU3 07:20 → CED 07:30 → CEDOF 07:30 → CICCU3 09:02 → CEDOF 09:02 → CICCU3 09:02 → C5B 12-10 09:24
PROVIDERS: Emergency Medicine; Internal Medicine; Internal Medicine Cardiovascular Disease; Nurse Practitioner
DX: I11.0 Hypertensive heart disease with heart failure (principal); J96.01 Acute respiratory failure with hypoxia; J18.9 Pneumonia, unspecified organism; Z68.44 Body mass index [BMI] 60.0-69.9, adult; I50.23 Acute on chronic systolic (congestive) heart failure; E66.01 Morbid (severe) obesity due to excess calories; G47.33 Obstructive sleep apnea (adult) (pediatric); E11.9 Type 2 diabetes mellitus without complications; E78.5 Hyperlipidemia, unspecified; J45.909 Unspecified asthma, uncomplicated; F41.9 Anxiety disorder, unspecified
CPT/HCPCS: 36415; 36600; 71010; 71020; 80048; 80061; 80076; 82308; 82550; 82553; 82803; 82810; 82947; 83036; 83605; 83735; 83880; 84443; 84484; 85025; 85027; 85610; 85730; 87040; 87449; 87899; 93005; 93970; 94640; 94660; 94760; 96365; 96375; 97161; 97165; 99152; 99153; 99291; C1769; C1887; C1894; C8929; G8978-GP; G8979-GP; G8980-GP; G8987-GO; G8988-GO; G8989-GO; J0456; J0696; J1250; J1644; J1650; J1940; J2250; J2930; J3010; Q9957